=== PATIENT | female | born 1955 | race Caucasian/White ===

== ENCOUNTER 2024-04-23 07:33 | Day surgery (SDC) | payer OTHER ==
[2024-04-13 15:36] LABS: BASOPHILS % (AUTO) 0.6 % (0-1); EOSINOPHILS # (AUTO) 0.1 X10'3 (0-0.9); EOSINOPHILS % (AUTO) 1.3 % (0-6); LYMPHOCYTES # (AUTO) 2.2 X10'3 (1.1-4.8); LYMPHOCYTES % (AUTO) 31.7 % (21-51); MEAN CORPUSCULAR HGB CONC 33.9 g/dL (33.0-36.5); MEAN CORPUSCULAR VOLUME 97.4 FL (78-98); MEAN PLATELET VOLUME 7.3 FL (7.4-10.4); MONOCYTES # (AUTO) 0.8 X10'3 (0-0.9); MONOCYTES % (AUTO) 11.7 % (2-12); NEUTROPHILS # (AUTO) 3.9 X10'3 (1.8-7.7); NEUTROPHILS % (AUTO) 54.7 % (42-75); PRE OP HEMATOCRIT 43.2 % (35.0-45.0); PRE OP HEMOGLOBIN 14.6 g/dL (12.0-16.0); PRE OP PLATELET COUNT 240 X10'3 (140-440); PRE OP WHITE BLOOD COUNT 7.1 10'3 (4.8-10.8); RED BLOOD COUNT 4.43 X10'6 (4.20-5.60); RED CELL DISTRIBUTION WIDTH 13.4 % (11.5-14.5)
[2024-04-13 15:37] LABS: BILIRUBIN,URINE NEGATIVE (Neg); CLARITY,URINE CLEAR (Clear); COLOR,URINE YELLOW (Yellow); GLUCOSE, URINE NEGATIVE (Neg); KETONES,URINE TRACE mg/dl (Neg); LEUKOCYTE ESTERASE ,URINE SMALL (Neg); NITRITES, URINE NEGATIVE (Neg); OCCULT BLOOD,URINE SMALL (Neg); PROTEIN,URINE NEGATIVE (Neg); UROBILINOGEN,URINE 0.2 E.U/dL (0.2-1.0)
[2024-04-13 15:38] LABS: UA COLLECTION TYPE NON-SPECIFIED
[2024-04-13 15:49] LABS: ALBUMIN 4.2 G/DL (3.4-5.0); ALKALINE PHOSPHATASE 72 IU/L (46-116); BLOOD UREA NITROGEN 15 MG/DL (7-18); BUN/CREATININE RATIO 18.3 (10.0-20.0); CALCIUM 8.7 MG/DL (8.5-10.1); CHLORIDE 103 MMOL/L (99-107); CREATININE 0.82 MG/DL (0.40-0.90); PRE OP ALT 18 U/L (30-65); PRE OP ANION GAP 8 (8-16); PRE OP AST 17 U/L (10-37); PRE OP BILIRUB, TOTAL 0.4 MG/DL (0.0-1.0); PRE OP GLUCOSE 93 MG/DL (70-104); PRE OP POTASSIUM 3.9 MMOL/L (3.4-5.1); PRE OP SODIUM 137 MMOL/L (135-145); TOTAL CARBON DIOXIDE 26.4 MMOL/L (24-32); TOTAL PROTEIN 8.4 G/DL (6.4-8.2); eGFR 70 ML/MIN
[2024-04-13 15:54] LABS: BACTERIA,URINE FEW /HPF (Neg); MUCUS STRANDS FEW /LPF (Neg); SQUAMOUS EPITHELIAL CELL,UR FEW /LPF (FEW); TRANSITIONAL EPI CELLS,URINE FEW /HPF
[~2024-04-23] VITALS: Ht 165.1 cm; Wt 120.0 kg
[2024-04-23] VITALS (20 sets, daily range): BP systolic 137–194; BP diastolic 58–99; PULSE 60–80; RESP 8–21; TEMP 97.6–98.1; O2SAT 92–98
[2024-04-23] MEDS: famotidine 20mg tablet PO ONE (05:30)
[2024-04-23] MEDS: ringers solution, lacted 1,000 ML IV SCH ×2 (05:30→11:00)
[~2024-04-23 07:33] MED LIST: METO25TA6 PO; TRIA1CAP88 PO; VALS320T17 PO
[2024-04-23] MEDS: ceFAZolin 2gm in dextrose, iso 50 ML IV ONE (07:59)
[2024-04-23] MEDS: DOCUMENT DATE & TIME OF BETA-BLOCKER PO ONE (07:59)
[2024-04-23] MEDS ORDERED: BUPIVAcaine 2.5mg/ml inj 50ml vial (contains preservative) ONE (09:04)
[2024-04-23] MEDS ORDERED: bacitracin 15gm ointment TP ONE (09:04)
[2024-04-23] MEDS ORDERED: sevoflurane 250ml liquid IH ONE (10:30)
[2024-04-23] MEDS ORDERED: midazolam 1 mg/ML 2ml injection ONE (10:35)
[2024-04-23] MEDS ORDERED: fentaNYL /PF 50mcg/ml 5ml ampule ONE (10:36)
[2024-04-23] MEDS ORDERED: morphine 4 MG/ML inj SYRINge IV PRN (11:00)
[2024-04-23] MEDS ORDERED: meperidine/PF 25mg/ml syringe IV PRN ×3 (11:00)
[2024-04-23] MEDS: acetaminophen 1,000mg/100ml IV 100 ML IV ONE (11:00)
[2024-04-23] MEDS ORDERED: ondansetron/PF 4mg/2ml inj IV PRN (11:00)
[2024-04-23] MEDS ORDERED: morphine 2 MG/ML inj. syringe IV PRN (11:00)
[2024-04-23] MEDS ORDERED: labetalol 20mg/4ml (5mg/ml) syringe IV PRN (11:00)
[2024-04-23] MEDS ORDERED: proCHLORperazine 10 MG/2 ml inj IV PRN (11:00)
[2024-04-23] MEDS ORDERED: hydrALAZINE 20mg/ml inj. IV PRN (11:00)
[2024-04-23] MEDS ORDERED: LIDOcaine 2% (20mg/ml) 5ml vial ONE (11:13)
[2024-04-23] MEDS ORDERED: propofol inj 20 ML IV ONE ×2 (11:13)
[2024-04-23] MEDS ORDERED: dexamethasone sod phosphate 4mg/ml inj. ONE (11:13)
[2024-04-23] MEDS ORDERED: 0.9 % SODIUM CHLORIDE 10 ML VIAL ONE ×2 (11:13)
[2024-04-23] MEDS ORDERED: ondansetron/PF 4mg/2ml inj ONE (11:13)
[2024-04-23] MEDS ORDERED: ROPIVAcaine 0.5% (5mg/ml) 30ml vial ONE (11:13)
[2024-04-23] MEDS ORDERED: HYDROcodone/acetaminophen 10/325mg tab PO PRN (15:50)
[2024-04-23] MEDS: metoprolol tartrate 25mg tablet PO SCH (19:40)
[2024-04-24 02:00] VITALS: BP 151/76; PULSE 69; RESP 16; TEMP 98.2; O2SAT 99
[2024-04-24 06:00] VITALS: BP 152/83; PULSE 63; RESP 15; TEMP 97.3; O2SAT 97
[2024-04-24] MEDS: triamterene/HCTZ 37.5/25mg tablet PO SCH (08:00)
[2024-04-24] MEDS: losartan 50mg tablet PO SCH (08:29)
[2024-04-24 10:00] VITALS: BP 150/82; PULSE 68; RESP 16; TEMP 97.9; O2SAT 97
[2024-04-24] MEDS: HYDROcodone/acetaminophen 10/325mg tab PO PRN (12:58)
== END 2024-04-24 14:20 | disposition home or self-care (01) ==
LOC: PAS 07:33 → ORTHO 4S 19:10 → PAS 04-24 14:20
PROVIDERS: ATTEND Podiatrist Foot & Ankle Surgery
DX: M20.31 Hallux varus (acquired), right foot (principal); M20.41 Other hammer toe(s) (acquired), right foot; M21.6X1 Other acquired deformities of right foot; M21.41 Flat foot [pes planus] (acquired), right foot; M25.374 Other instability, right foot; M77.41 Metatarsalgia, right foot; M19.071 Primary osteoarthritis, right ankle and foot; M20.11 Hallux valgus (acquired), right foot; I10 Essential (primary) hypertension; E66.9 Obesity, unspecified; Z79.899 Other long term (current) drug therapy; Z68.44 Body mass index [BMI] 60.0-69.9, adult
CPT/HCPCS: 28285; 28750; 36415; 64445; 64447; 73600; 80053; 81001; 82948; 85025; 87088; A6223; C1713; J0690; J0735; J1100; J2003; J2250; J2405; J2704; J2795; J3010; J7030; J7120; L4360; Z7506; Z7508; Z7512; 76000; A4215; A4618; A6449; A7000; G0378; J3490